=== PATIENT | female | born 1955 | race Hispanic/Latino ===

== ENCOUNTER 2020-05-13 11:38 | Outpatient (CLI) | payer BC, SELFPAY ==
--- NOTE | ~2020-05-13 | MM_ITS ---
EXAMINATION: MM screening [facility] BI w keith HISTORY: Screening TECHNIQUE: Craniocaudal and mediolateral oblique 3-D tomosynthesis images were obtained and synthetic 2-D images were generated. CAD analysis was submitted and interpreted. COMPARISON: Comparison to multiple prior studies sequentially, with oldest reviewed study dated 06/13. BREAST PARENCHYMAL COMPOSITION: There are scattered areas of fibroglandular density. FINDINGS: There is no evidence of suspicious mass, calcification, or architectural distortion to sugg est malignancy in either breast. There has been no suspicious interval change. IMPRESSION: 1. No mammographic evidence of malignancy. 2. Recommend routine screening mammography in one year. BI-RADS Category 1: Negative Reviewed, dictated and finalized at location A. ANICAL TECHNOLOGIST
== END 2020-05-13 11:39 | disposition home or self-care (01) ==
LOC: ANHIMG 11:41
PROVIDERS: PCP Internal Medicine; Visit Provider Obstetrics & Gynecology
DX: Z12.31 Encounter for screening mammogram for malignant neoplasm of breast (principal)
CPT/HCPCS: 77063; 77067

== ENCOUNTER → 2021-02-28 14:08 | Outpatient (CLI) | payer BC, SELFPAY ==
--- NOTE | ~2021-02-28 | XR_ITS ---
XR knee RT 2V 02/28/2021 14:17 Indication: Right knee pain Procedure: 2 views right knee Comparison: 11/09/2013 Findings: There is severe osteoarthritis of the right knee. Small joint effusion. No fracture, sublux ation or dislocation. Impression: 1: Severe osteoarthritis of the right knee. Reviewed, dictated and finalized at location A. Impression: 1: Severe osteoarthritis of the right knee.
== END ==
PROVIDERS: PCP Internal Medicine; Visit Provider Nurse Practitioner Family
DX: M17.11 Unilateral primary osteoarthritis, right knee (principal)
CPT/HCPCS: 73560

== ENCOUNTER 2021-11-10 09:17 | Outpatient (CLI) | payer BC, SELFPAY ==
--- NOTE | ~2021-11-10 | MM_ITS ---
EXAMINATION: MM screening [facility] BI w keith HISTORY: Screening mammogram TECHNIQUE: Craniocaudal and mediolateral oblique 3-D tomosynthesis images were obtained and synthetic 2-D images were generated. CAD analysis was submitted and interpreted. COMPARISON: 05/13/2020, 02/20/2019, 11/06/2017 bilateral screening mammogram examinations BREAST PARENCHYMAL COMPOSITION: There are scattered areas of fibroglandular density. FINDINGS: There is no evidence of suspicious mass, calcification, or architectural distortion to sugg est malignancy in either breast. There has been no suspicious interval change. IMPRESSION: 1. No mammographic evidence of malignancy. 2. Recommend routine screening mammography in one year. BI-RADS Category 1: Negative Reviewed, dictated and finalized at location A.
== END 2021-11-10 09:18 | disposition home or self-care (01) ==
LOC: ANHIMG 09:20
PROVIDERS: PCP Internal Medicine; Visit Provider Obstetrics & Gynecology
DX: Z12.31 Encounter for screening mammogram for malignant neoplasm of breast (principal)
CPT/HCPCS: 77063; 77067

== ENCOUNTER 2022-09-23 10:39 | Outpatient (CLI) | payer BC, SELFPAY ==
--- NOTE | ~2022-09-23 | DEXA_ITS ---
Bone Density Report Name: ALLEGRA MOSS Age: 67 Sex: Female Ethnicity: Date of : 1955 Indication: postmenopausal; screening for osteoporosis; Referring Provider: AMINAH ÁLVAREZ Study: Bone densitometry was performed. Exam Date: September 23, 2022 Accession number: [id number] Bone Density: Region BMD T-score Z-score Classification AP Spine(L1, L2) 0.989 0.1 1.8 Normal Femoral Neck (Left) 0.798 -0.5 0.9 Normal Total Hip (Left) 0.929 -0.1 0.9 Normal Femoral Neck (Right) 0.757 -0.8 0.5 Normal Total Hip (Right) 0.901 -0.3 0.7 Normal Total Hip Mean 0.915 -0.2 0.8 Normal World Health Organization criteria for BMD impression classify patients as: Normal (T-score at or above -1.0), Osteopenia (T-score between -1.0 and -2.5), or Osteoporosis (T-score at or below -2.5). 10-year Fracture Risk: FRAX not reported because: All T-scores for Spine Total, Hip Total, Femoral Neck at or above -1.0 Previous Exams: Region Exam Age BMD T-score BMD Change BMD Change Date g/cm2 vs Baseline vs Previous AP Spine (L1-L2) 09/23/2022 67 0.989 0.1 -0.097 (-8.9%) -0.097 (-8.9%) 08/25/2014 59 1.086 1.0 Total Hip(Left) 09/23/2022 67 0.929 -0.1 -0.152 (-14.1% -0.152 (-14.1% 08/25/2014 59 1.081 1.1 Total Hip(Right) 09/23/2022 67 0.901 -0.3 -0.202 (-18.3% -0.202 (-18.3% 08/25/2014 59 1.103 1.3 *Denotes significance at 95% confidence level, LSC for AP Spine = 0.022 g/cm2, LSC for Total Hip = 0.027 g/cm2 Clinical Information Provided by Patient: Patient maximum height was 62 Menopause Age: 53 No regular weight bearing exercise Does not regularly consume dairy products Drinks caffeinated beverages Onset of menses at age 13 Number of children 2 Impression: The patient has normal bone mass. The BMD for the AP Spine (L1-L2) decreased, changing by -8.9% since the last DXA exam. The BMD for the Total Hip(Left) decreased, changing by -14.1% since the last DXA exam. The BMD for the Total Hip(Right) decreased, changing by -18.3% since the last DXA exam. Discussion: BONE DENSITY IS ABOVE THE MINIMUM DESIRABLE LEVEL AT ALL SKELETAL SITES TESTED. This patient?s bone mineral density is above the minimum desirable level (T-score -1.0 or better) at all sites measured. The patient should follow a healthful lifestyle (good nutrition with adequate calcium and vitamin D, and appropriate weight-bearing exercise). Follow-Up: Consider r
== END 2022-09-23 10:40 | disposition home or self-care (01) ==
PROVIDERS: PCP Internal Medicine; Visit Provider Obstetrics & Gynecology
DX: Z78.0 Asymptomatic menopausal state (principal); R29.890 Loss of height
CPT/HCPCS: 77080

== ENCOUNTER 2023-01-28 07:33 | Outpatient (CLI) | payer BC, SELFPAY ==
--- NOTE | ~2023-01-28 | MM_ITS ---
EXAMINATION: MM screening [facility] BI w keith HISTORY: Screening TECHNIQUE: Craniocaudal and mediolateral oblique 3-D tomosynthesis images were obtained and synthetic 2-D images were generated. CAD analysis was submitted and interpreted. COMPARISON: Comparison to multiple prior studies sequentially, with oldest reviewed study dated 08/28. BREAST PARENCHYMAL COMPOSITION: There are scattered areas of fibroglandular density. FINDINGS: There is no evidence of suspicious mass, calcification, or architectural distortion to sugg est malignancy in either breast. There has been no suspicious interval change. IMPRESSION: 1. No mammographic evidence of malignancy. 2. Recommend routine screening mammography in one year. BI-RADS Category 1: Negative Reviewed, dictated and finalized at location A.
== END 2023-01-28 07:34 | disposition home or self-care (01) ==
PROVIDERS: PCP Internal Medicine; Visit Provider Obstetrics & Gynecology
DX: Z12.31 Encounter for screening mammogram for malignant neoplasm of breast (principal)
CPT/HCPCS: 77063; 77067

== ENCOUNTER 2024-04-07 13:32 | Outpatient (CLI) | payer BC, SELFPAY ==
--- NOTE | ~2024-04-07 | MM_ITS ---
EXAMINATION: MM screening [facility] BI w keith HISTORY: Screening TECHNIQUE: Craniocaudal and mediolateral oblique 3-D tomosynthesis images were obtained and synthetic 2-D images were generated. CAD analysis was submitted and interpreted. COMPARISON: Comparison to multiple prior studies sequentially, with oldest reviewed study dated 03/2017 . BREAST PARENCHYMAL COMPOSITION: Not dense: There are scattered areas of fibroglandular density. FINDINGS: There is no evidence of suspicious mass, calcification, or architectural distortion to sugg est malignancy in either breast. There has been no suspicious interval change. IMPRESSION: 1. No mammographic evidence of malignancy. 2. Recommend routine screening mammography in one year. BI-RADS Category 1: Negative Reviewed, dictated and finalized at location B.
== END 2024-04-07 13:33 | disposition home or self-care (01) ==
LOC: ANHIMG 13:36
PROVIDERS: PCP Internal Medicine; Visit Provider Obstetrics & Gynecology
DX: Z12.31 Encounter for screening mammogram for malignant neoplasm of breast (principal)
CPT/HCPCS: 77063; 77067

== ENCOUNTER 2025-05-18 07:48 | Outpatient (CLI) | payer BC, SELFPAY ==
--- NOTE | ~2025-05-18 | MM_ITS ---
EXAMINATION: MM screening keya BI w keith HISTORY: Screening TECHNIQUE: Craniocaudal and mediolateral oblique 3-D tomosynthesis images were obtained and synthetic 2-D images were generated. CAD analysis was submitted and interpreted. COMPARISON: Comparison to multiple prior studies sequentially, with oldest reviewed study dated , 02/20/2019 BREAST PARENCHYMAL COMPOSITION: There are scattered areas of fibroglandular density. FINDINGS: There is no evidence of suspicious mass, calcification, or architectural distortion to suggest malignancy in either breast. IMPRESSION: 1. No mammographic evidence of malignancy. 2. Recommend routine screening mammography in one year. BI-RADS Category 1: Negative Reviewed, dictated and finalized at location B. 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
--- NOTE | ~2025-05-18 | DEXA_ITS ---
Bone Density Report Name: ALLEGRA MOSS Age: 69 Sex: Female Ethnicity: Date of : 1955 Indication: postmenopausal; screening for osteoporosis; Referring Provider: AMINAH ÁLVAREZ Study: Bone densitometry was performed. Exam Date: May 18, 2025 Accession number: [id number] Bone Density: Region BMD T-score Z-score Classification AP Spine(L1, L2) 1.013 0.3 2.2 Normal Femoral Neck (Left) 0.767 -0.7 0.8 Normal Total Hip (Left) 0.912 -0.2 1.0 Normal Femoral Neck (Right) 0.759 -0.8 0.7 Normal Total Hip (Right) 0.900 -0.3 0.9 Normal Total Hip Mean 0.906 -0.3 1.0 Normal World Health Organization criteria for BMD impression classify patients as: Normal (T-score at or above -1.0), Osteopenia (T-score between -1.0 and -2.5), or Osteoporosis (T-score at or below -2.5). 10-year Fracture Risk: FRAX not reported because: All T-scores for Spine Total, Hip Total, Femoral Neck at or above -1.0 Previous Exams: Region Exam Age BMD T-score BMD Change BMD Change Date g/cm2 vs Baseline vs Previous AP Spine (L1-L2) 05/18/2025 69 1.013 0.3 -0.073 (-6.7%) 0.024 (2.4%)* 09/23/2022 67 0.989 0.1 -0.097 (-8.9%) -0.097 (-8.9%) 08/25/2014 59 1.086 1.0 Total Hip(Left) 05/18/2025 69 0.912 -0.2 -0.169 (-15.6% -0.017 (-1.8%) 09/23/2022 67 0.929 -0.1 -0.152 (-14.1% -0.152 (-14.1% 08/25/2014 59 1.081 1.1 Total Hip(Right) 05/18/2025 69 0.900 -0.3 -0.203 (-18.4% -0.001 (-0.1%) 09/23/2022 67 0.901 -0.3 -0.202 (-18.3% -0.202 (-18.3% 08/25/2014 59 1.103 1.3 *Denotes significance at 95% confidence level, LSC for AP Spine = 0.022 g/cm2, LSC for Total Hip = 0.027 g/cm2 Clinical Information Provided by Patient: Patient maximum height was 62 Menopause Age: 53 No regular weight bearing exercise Does not regularly consume dairy products Drinks caffeinated beverages Onset of menses at age 13 Number of children 2 Impression: The patient has normal bone mass. No significant bone loss was observed. Discussion: BONE DENSITY IS ABOVE THE MINIMUM DESIRABLE LEVEL AT ALL SKELETAL SITES TESTED. This patient?s bone mineral density is above the minimum desirable level (T-score -1.0 or better) at all sites measured. The patient should follow a healthful lifestyle (good nutrition with adequate calcium and vitamin D, and appropriate weight-bearing exercise). Follow-Up: Consider repeating this study in 5 years or sooner if there is some new clinical indication. Reported by: RODERICK on 05/18/2025 8:46:00 AM. Reviewed, dictated and finalized at location A.
--- OUTSIDE RECORDS SUMMARY | 2025-05-18 08:07 | XMS_ITS | Encounter Summary ---
Author Organization [facility] Facility Care Team Providers Care Precision Farming Specialist Name Role Phone Annie Chan MD Primary Care Provider [phone] Encounter Details Date Type Department Care Team (Latest Contact Info) Description 02/18/2017 Orders Only [facility] CLINCONV ProviderBre MD [address] [place] [address] Social History Tobacco Use Types Packs/Day Years Used Date Smoking Tobacco: Never Assessed Comments Unknown Sex and Gender Information Value Date Recorded Sex Assigned at Not on file Legal Sex Female 7:07 PM AT RISK SPECIALIST Gender Identity Not on file Sexual Orientation Not on file documented as of this encounter Plan of Treatment Upcoming Encounters Date Type Department Care Team (Latest Contact Info) Description 06/24/2025 7:15 AM AT RISK SPECIALIST Hospital Encounter [facility] [place] [address] [place] [address] Benoit Miller MD [address] [place] [address] DR NATHAN [address] [place] [phone] 06/24/2025 7:15 AM AT RISK SPECIALIST - 06/24/2025 9:22 AM AT RISK SPECIALIST Surgery [facility] [place] [address] [place] [address] Benoit Miller MD [address] [place] [address] DR NATHAN [address] [place] [phone] RIGHT TOTAL KNEE ARTHROPLASTY Scheduled Procedures Name Priority Associated Diagnoses Date/Ti me ARTHROPLASTY TOTAL KNEE Primary osteoarthritis of right knee 06/24/2025 7:15 AM AT RISK SPECIALIST documented as of this encounter Procedures Procedure Name Priority Date/Time Associated Diagnosis Comments COLONOSCOPY - SCAN 02/18/2017 12 :00 AM CDT documented in this encounter Results * COLONOSCOPY - SCAN (02/18/2017 12:00 AM CDT) Narrative 02/18/2017 12:00 AM CDT Ordered by an unspecified provider. us Historical Provider MD Final Res ult documented in this encounter Visit Diagnoses Not on filedocumented in this encounter Care Teams Precision Farming Specialist Relationship Specialty Start Date End Date Annie Chan MD [address] [facility] [address] [address] PCP - General Internal Medicine 11/10/18 documented as of this encounter
--- OUTSIDE RECORDS SUMMARY | 2025-05-18 08:07 | XMS_ITS | Encounter Summary ---
Author Organization [facility] Facility Care Team Providers Care Heel Scorer Name Role Phone Annie Chan MD Primary Care Provider [phone] Encounter Details Date Type Department Care Team (Latest Contact Info) Description 06/26/2017 Orders Only [facility] CLINCONV ProviderBre MD [address] [place] [address] Social History Tobacco Use Types Packs/Day Years Used Date Smoking Tobacco: Never Assessed Comments Unknown Sex and Gender Information Value Date Recorded Sex Assigned at Not on file Legal Sex Female 7:07 PM TUMBLERS SUPERVISOR Gender Identity Not on file Sexual Orientation Not on file documented as of this encounter Plan of Treatment Upcoming Encounters Date Type Department Care Team (Latest Contact Info) Description 06/24/2025 7:15 AM TUMBLERS SUPERVISOR Hospital Encounter [facility] [place] [address] [place] [address] Benoit Miller MD [address] [place] [address] DR NATHAN [address] [place] [phone] 06/24/2025 7:15 AM TUMBLERS SUPERVISOR - 06/24/2025 9:22 AM TUMBLERS SUPERVISOR Surgery [facility] [place] [address] [place] [address] Benoit Miller MD [address] [place] [address] DR NATHAN [address] [place] [phone] RIGHT TOTAL KNEE ARTHROPLASTY Scheduled Procedures Name Priority Associated Diagnoses Date/Ti me ARTHROPLASTY TOTAL KNEE Primary osteoarthritis of right knee 06/24/2025 7:15 AM TUMBLERS SUPERVISOR documented as of this encounter Procedures Procedure Name Priority Date/Time Associated Diagnosis Comments PROCEDURE - RESULT 08/14/2017 12 :00 AM TUMBLERS SUPERVISOR documented in this encounter Results * PROCEDURE - RESULT (08/14/2017 12:00 AM TUMBLERS SUPERVISOR) Narrative 08/14/2017 12:00 AM TUMBLERS SUPERVISOR Ordered by an unspecified provider. us Historical Provider MD Final Res ult documented in this encounter Visit Diagnoses Not on filedocumented in this encounter Care Teams Heel Scorer Relationship Specialty Start Date End Date Annie Chan MD [address] [facility] [address] [phone] PCP - General Internal Medicine 11/10/18 documented as of this encounter
--- OUTSIDE RECORDS SUMMARY | 2025-05-18 08:07 | XMS_ITS | Encounter Summary ---
Author Organization [facility] Address [address] [facility] [place] [address] Phone Care Team Providers Care Check Writer Salesperson Name Role Phone Annie Chan MD Primary Care Provider [phone] Encounter Details Date Type Department Care Team (Latest Contact Info) Description 09/26/2020 Orders Only [facility] Scanning, Provider Social History Tobacco Use Types Packs/Day Years Used Date Smoking Tobacco: Never Smokeless Tobacco: Never Alcohol Use Standard Drinks/Week Comments Never 0 (1 standard drink = 0.6 oz pur e alcohol) AUDIT-C Answer Date Recorded Frequency of Alcohol Consumption Never 11/10/2018 Average Number of Drinks Not on file 019 Frequency of Binge Drinking Not on file 10/14 PHQ-2 Answer Date Recorded PHQ-2 Total Score (If total score is 3 or more points, staff should administer the PHQ-9) 1 09/06/2020 Comments Unknown Sex and Gender Information Value Date Recorded Sex Assigned at Not on file Legal Sex Female 7:07 PM STERILE SUPPLY TECHNICIAN Gender Identity Not on file Sexual Orientation Not on file 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 Not on file Not on file documented as of this encounter Plan of Treatment Upcoming Encounters Date Type Department Care Team (Latest Contact Info) Description 06/24/2025 7:15 AM STERILE SUPPLY TECHNICIAN Hospital Encounter [facility] [place] [address] [place] [address] [place] [address] [place] [phone] 06/24/2025 7:15 AM STERILE SUPPLY TECHNICIAN - 06/24/2025 9:22 AM STERILE SUPPLY TECHNICIAN Surgery [facility] [place] [address] [place] [address] Benoit Miller MD [address] [facility] [address] NATHAN [address] [place] [phone] RIGHT TOTAL KNEE ARTHROPLASTY Scheduled Procedures Name Priority Associated Diagnoses Date/Ti me ARTHROPLASTY TOTAL KNEE Primary osteoarthritis of right knee 06/24/2025 7:15 AM STERILE SUPPLY TECHNICIAN documented as of this encounter Procedures Procedure Name Priority Date/Time Associated Diagnosis Comments SCAN - LABS 09/26/2020 documented in this encounter Results * SCAN - LABS (09/26/2020) us Provider Scanning Final Result documented in this encounter Visit Diagnoses Not on filedocumented in this encounter Care Teams Check Writer Salesperson Relationship Specialty Start Date End Date Annie Chan MD [facility] [address] NATHAN [address] [place] [id number] PCP - General Internal Medicine 11/10/18 documented as of this encounter
--- OUTSIDE RECORDS SUMMARY | 2025-05-18 08:07 | XMS_ITS | Clinical Summary ---
Author Organization 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 Role Phone Annie Chan MD Primary Care Provider [phone] Allergies No known active allergies Medications vitamin B complex capsule Take 1 capsule by mouth daily Active cholecalciferol , vitamin D3, (VITAMIN D3 ORAL) Take 1,000 mg by mouth daily Active triamcinolone (KENALOG) 0.1 % cream Apply topically 2 (two) times a day 80 g 1 5 Active diclofenac sodium (VOLTAREN) 1 % gel Apply 4 g topically 3 (three) times a day 100 g 2 5 Active desonide (DESOWEN) 0.05 % lotionIndicatio ns:Facial rash Apply topically 2 (two) times a day 59 mL 3 5 Active Active Problems Problem Noted Date Diagnosed Date Acute right ankle pain 03/03/2025 Assessment & Plan (03/03/2025 5:11 PM CDT): Patient with pain of the right ankle on the medial aspect after she tripped over a brick. She has mild tenderness in the area. There is no swelling. Patient is ambulatory without assistance. Will obtain x-ray. Advised to apply Voltaren gel twice daily. Elevate the leg. Advised to wear ankle brace. Advised to apply ice. If she has persistent symptoms she will follow up with her orthopedic doctor Cyst of left ovary 01/03/2025 Assessment & Plan (01/03/2025 7:41 AM CDT): Follow-up with a speech coach. Left carpal tunnel syndrome 06/21/2024 Pain of left hand 06/21/2024 Primary insomnia 02/17/2023 Assessment & Plan (01/28/2024 4:29 PM CDT): Patient was on trazodone 100 mg q.h.s. but she believes that dose was too strong for her so we will cut down the dose to 50 mg q.h.s. Assessment & Plan (02/17/2023 10:55 AM CDT): We discussed sleep hygiene with the patient. Patient stated that she tried melatonin and that did not help. Will start her on trazodone 100 mg q.h.s. p.r.n.. BMI 38.0-38.9,adult 11/11/2022 Primary osteoarthritis of right knee 03/25/2022 Assessment & Plan (03/03/2025 5:11 PM CDT): Patient has severe osteoarthritis of right knee and she is followed by the orthopedic surgeon Assessment & Plan (09/30/2024 1:04 PM CDT): Patient has severe osteoarthritis of right knee and she is followed by the orthopedic surgeon Assessment & Plan (01/28/2024 4:28 PM CDT): Patient has severe arthritis of the right knee. She is followed by the orthopedic doctor. Steroid injections and gel injections did not help much. Advised to discuss that further with her orthopedic doctor Assessment & Plan (11/11/2022 10:23 AM CDT): Managed by the orthopedic doctor Assessment & Plan (08/13/2022 9:52 AM ADMINISTRATIVE PROFESSIONAL): Followed by the orthopedic doctor Assessment & Plan (03/25/2022 4:26 PM CDT): Will make a referral to see orthopedic doctor again for possible total knee replacement Recurrent major depressive disorder, in full rem ission 12/24/2021 Assessment & Plan (03/03/2025 5:12 PM CDT): Patient is stable without medications Assessment & Plan (09/30/2024 1:04 PM CDT): Patient is stable without medications Assessment & Plan (05/03/2024 11:47 AM CDT): Controlled on Prozac Assessment & Plan (01/28/2024 7:49 AM CDT): Patient is in remission without medications Assessment & Plan (09/24/2023 2:58 PM CDT): Patient is in remission without medications Assessment & Plan (05/20/2023 7:47 AM ADMINISTRATIVE PROFESSIONAL): Controlled on Prozac Assessment & Plan (02/17/2023 10:55 AM CDT): Controlled on Prozac Assessment & Plan (11/11/2022 7:53 AM CDT): Controlled on Prozac Assessment & Plan (08/13/2022 9:52 AM ADMINISTRATIVE PROFESSIONAL): Resume Prozac 10 mg daily Assessment & Plan (03/25/2022 4:26 PM CDT): Patient stop taking Prozac and she feels well with no symptoms of depression. Continue to hold Prozac Assessment & Plan (12/24/2021 4:50 PM CDT): Controlled on Prozac Migraine without aura and wi thout status migrainosus, not intractable 09/17/2021 Assessment & Plan (01/03/2025 11:36 AM CDT): Asymptomatic Assessment & Plan (09/30/2024 1:04 PM CDT): Asymptomatic Assessment & Plan (05/03/2024 7:43 AM CDT): Asymptomatic Assessment & Plan (01/28/2024 7:48 AM CDT): Asymptomatic Assessment & Plan (09/24/2023 2:58 PM CDT): Asymptomatic Assessment & Plan (05/20/2023 10:43 AM ADMINISTRATIVE PROFESSIONAL): Patient said that she has occasional episodes of migraine. She said on average is twice a month. She said she takes Tylenol. Nurtec was not covered by her insurance. Patient does not feel she needs to be on prescription drugs at this time. Assessment & Plan (02/17/2023 10:54 AM CDT): Patient with recurrent migraine headache. We gave her samples of nurtec and will try to order the medication again. Assessment & Plan (11/11/2022 10:23 AM CDT): Patient with recurrent migraine headache. We will start her on nurtec 75 mg p.r.n.. She will call for persistent symptoms Assessment & Plan (08/13/2022 9:52 AM ADMINISTRATIVE PROFESSIONAL): Asymptomatic Assessment & Plan (03/25/2022 1:10 PM CDT): Asymptomatic and stable without medications Assessment & Plan (12/24/2021 4:49 PM CDT): Patient is asymptomatic and stable without medications Assessment & Plan (09/17/2021 5:04 PM ADMINISTRATIVE PROFESSIONAL): Patient with recurrent migraine. She will be started again on emgality 120 mg subQ once a month. She will call for persistent headache. Itching 09/06/2020 Assessment & Plan (06/11/2021 4:57 PM ADMINISTRATIVE PROFESSIONAL): Improved and followed by the home lending officer Assessment & Plan (09/06/2020 4:57 PM ADMINISTRATIVE PROFESSIONAL): Will obtain food allergy testing and start her on Atarax and side effects were explained and the patient will call in 1-2 weeks for persistent symptoms for referral to see customer service agent Bilateral leg edema 12/02/2019 Assessment & Plan (09/24/2023 2:58 PM CDT): No leg edema. Patient is stable off Bumex Assessment & Plan (08/13/2022 7:53 AM ADMINISTRATIVE PROFESSIONAL): Controlled on Bumex Assessment & Plan (12/24/2021 4:49 PM CDT): Controlled on Bumex Assessment & Plan (06/11/2021 4:57 PM ADMINISTRATIVE PROFESSIONAL): Controlled on Bumex Assessment & Plan (03/12/2021 4:41 PM CDT): There is no leg edema. Patient stopped Bumex Assessment & Plan (12/08/2019 1:54 PM CDT): Continue Lasix 40 mg daily and elevate the legs as tolerated. Assessment & Plan (12/02/2019 10:50 AM CDT): The patient has a +2 bilateral leg edema. We discussed low-salt diet and encouraged her to ambulate more frequently. The patient will be started on Lasix 40 mg daily and will evaluate her again in 1 week Left leg cellulitis 12/02/2019 Assessment & Plan (12/02/2019 10:50 AM CDT): The patient has varicose veins in the left leg and evidence of mild cellulitis. We will start her on Augmentin 875 mg twice daily for 1 week and evaluate her after that. Chronic pain of right knee 07/28/2019 Assessment & Plan (12/04/2020 5:07 PM CDT): Follow-up with orthopedic doctor or pain management for possible steroid injections Assessment & Plan (05/29/2020 4:54 PM ADMINISTRATIVE PROFESSIONAL): Patient was advised to follow up with the orthopedic doctor for chronic pain in her right knee. We discussed the importance of weight loss to help with her symptoms. She will continue Voltaren gel as needed Assessment & Plan (02/24/2020 5:00 PM CDT): Start Voltaren gel 3 times daily p.r.n. Varicose veins of right lower extremity with [place] quinteros 07/08/2019 Assessment & Plan (12/24/2021 4:49 PM CDT): Advised to wear stockings specially if she spends long time on her feet Assessment & Plan (09/06/2020 1:19 PM ADMINISTRATIVE PROFESSIONAL): Status post ablation therapy Assessment & Plan (05/29/2020 4:54 PM ADMINISTRATIVE PROFESSIONAL): Status post ablation therapy with resolution of the pain and swelling in the right leg Assessment & Plan (02/24/2020 4:59 PM CDT): Followed by the vascular surgeon Assessment & Plan (12/08/2019 1:55 PM CDT): The patient has spider veins with superficial thrombophlebitis in the left leg. Will make her a referral to see a different vascular surgeon for 2nd opinion. The patient said that she tried elastic stockings but she could not tolerate them. The patient was advised to elevate her legs as much as possible and continue with Lasix 40 mg daily. Anxiety 08/31/2018 Assessment & Plan (09/30/2024 1:03 PM CDT): Stable without medications Assessment & Plan (05/03/2024 11:47 AM CDT): Controlled on Prozac Assessment & Plan (09/24/2023 2:57 PM CDT): Patient is doing well without the medication. She will call for recurrent symptoms Assessment & Plan (12/04/2020 5:07 PM CDT): Patient will be started on Xanax to be taken before she flies. We also will start her on Prozac 20 mg daily for anger and I recommended that she seeks counseling. She will do that. She will call for persistent symptoms and will consider psychiatric referral if she does not feel better Essential hypertension 08/13/2017 Assessment & Plan (01/03/2025 11:36 AM CDT): Blood pressure is stable without medications Assessment & Plan (09/30/2024 1:03 PM CDT): Patient ran out of the medications for over a month and her blood pressure is normal. Continue low-salt diet. She lost weight with diet and exercise and she was encouraged to continue to do that. Assessment & Plan (05/03/2024 7:43 AM CDT): Blood pressure is stable without medications. Continue low-salt diet and encouraged weight loss Assessment & Plan (01/28/2024 7:48 AM CDT): Blood pressure is stable without medications. Continue low-salt diet and encouraged weight loss Assessment & Plan (09/24/2023 2:58 PM CDT): Patient is out of her blood pressure medications for 3 weeks and the blood pressure is normal so we will continue to hold blood pressure medications. Patient lost some weight with diet and encouraged her to lose more weight. Continue low-salt diet Assessment & Plan (05/20/2023 7:46 AM ADMINISTRATIVE PROFESSIONAL): Continue current medications. Discussed low-salt diet. Discussed exercise on regular basis. Will continue to monitor Assessment & Plan (02/17/2023 10:54 AM CDT): Continue current medications. Discussed low-salt diet. Discussed exercise on regular basis. Will continue to monitor Assessment & Plan (11/11/2022 7:52 AM CDT): Continue current medications. Discussed low-salt diet. Discussed exercise on regular basis. Will continue to monitor Assessment & Plan (08/13/2022 7:51 AM ADMINISTRATIVE PROFESSIONAL): Continue current medications. Discussed low-salt diet. Discussed exercise on regular basis. Will continue to monitor Assessment & Plan (03/25/2022 1:10 PM CDT): Continue current medications. Discussed low-salt diet. Discussed exercise on regular basis. Will continue to monitor Assessment & Plan (12/24/2021 4:49 PM CDT): Continue current medications. Discussed low-salt diet. Discussed exercise on regular basis. Will continue to monitor Assessment & Plan (09/17/2021 1:13 PM ADMINISTRATIVE PROFESSIONAL): Continue current medications. Discussed low-salt diet. Discussed exercise on regular basis. Will continue to monitor Assessment & Plan (06/11/2021 1:00 PM ADMINISTRATIVE PROFESSIONAL): Continue current medications. Discussed low-salt diet. Discussed exercise on regular basis. Will continue to monitor Assessment & Plan (03/12/2021 12:59 PM CDT): Continue current medications. Discussed low-salt diet. Discussed exercise on regular basis. Will continue to monitor Assessment & Plan (12/04/2020 5:06 PM CDT): Continue current medications. Discussed low-salt diet. Discussed exercise on regular basis. Will continue to monitor Assessment & Plan (09/06/2020 1:19 PM ADMINISTRATIVE PROFESSIONAL): Continue current medications. Discussed low-salt diet. Discussed exercise on regular basis. Will continue to monitor Assessment & Plan (05/29/2020 4:54 PM ADMINISTRATIVE PROFESSIONAL): Continue current medications. Discussed low-salt diet. Discussed exercise on regular basis. Will continue to monitor Assessment & Plan (02/24/2020 4:59 PM CDT): Continue current medications. Discussed low-salt diet. Discussed exercise on regular basis. Will continue to monitor Assessment & Plan (12/08/2019 1:54 PM CDT): Continue current medications. Discussed low-salt diet. Discussed exercise on regular basis. Will continue to monitor Assessment & Plan (12/02/2019 10:50 AM CDT): Continue current medications. Discussed low-salt diet. Discussed exercise on regular basis. Will continue to monitor Assessment & Plan (09/20/2019 4:59 PM CDT): Continue current medications. Discussed low-salt diet. Discussed exercise on regular basis. Will continue to monitor Assessment & Plan (06/21/2019 4:56 PM ADMINISTRATIVE PROFESSIONAL): Continue current medications. Discussed low-salt diet. Discussed exercise on regular basis. Will continue to monitor Assessment & Plan (03/16/2019 8:07 PM CDT): Continue current medications. Discussed low-salt diet. Discussed exercise on regular basis. Will continue to monitor Assessment & Plan (12/09/2018 5:07 PM CDT): Continue current medications. Discussed low-salt diet. Discussed exercise on regular basis. Will continue to monitor S/P lumbar fusion 06/26/2017 Spondylolisthesis of lumbar region 06/26/2017 Morbid obesity with BMI of 40.0-44.9, adult 04/0 12/2016 Assessment & Plan (09/30/2024 7:56 AM CDT): Encouraged low-calorie diet and ambulation as tolerated Assessment & Plan (05/03/2024 7:43 AM CDT): Encouraged low-calorie diet and ambulation as tolerated Assessment & Plan (01/28/2024 4:30 PM CDT): Encouraged low-calorie diet and ambulation as tolerated Assessment & Plan (09/23/2023 5:16 PM CDT): BMI Follow-up includes: nutrition counseling. The patient was advised to exercise 5 times a week for 30 minutes each time. We discussed low calorie diet. Discussed lifestyle changes. Assessment & Plan (05/20/2023 7:47 AM ADMINISTRATIVE PROFESSIONAL): BMI Follow-up includes: nutrition counseling. The patient was advised to exercise 5 times a week for 30 minutes each time. We discussed low calorie diet. Discussed lifestyle changes. Assessment & Plan (02/17/2023 10:55 AM CDT): BMI Follow-up includes: nutrition counseling. The patient was advised to exercise 5 times a week for 30 minutes each time. We discussed low calorie diet. Discussed lifestyle changes. Assessment & Plan (11/11/2022 7:53 AM CDT): BMI Follow-up includes: nutrition counseling. The patient was advised to exercise 5 times a week for 30 minutes each time. We discussed low calorie diet. Discussed lifestyle changes. Assessment & Plan (08/13/2022 7:52 AM ADMINISTRATIVE PROFESSIONAL): BMI Follow-up includes: nutrition counseling. The patient was advised to exercise 5 times a week for 30 minutes each time. We discussed low calorie diet. Discussed lifestyle changes. Assessment & Plan (03/25/2022 1:10 PM CDT): BMI Follow-up includes: nutrition counseling. The patient was advised to exercise 5 times a week for 30 minutes each time. We discussed low calorie diet. Discussed lifestyle changes. Assessment & Plan (12/24/2021 4:49 PM CDT): BMI Follow-up includes: nutrition counseling. The patient was advised to exercise 5 times a week for 30 minutes each time. We discussed low calorie diet. Discussed lifestyle changes. Assessment & Plan (09/17/2021 1:13 PM ADMINISTRATIVE PROFESSIONAL): BMI Follow-up includes: nutrition counseling. The patient was advised to exercise 5 times a week for 30 minutes each time. We discussed low calorie diet. Discussed lifestyle changes. Assessment & Plan (06/11/2021 1:01 PM ADMINISTRATIVE PROFESSIONAL): BMI Follow-up includes: nutrition counseling. The patient was advised to exercise 5 times a week for 30 minutes each time. We discussed low calorie diet. Discussed lifestyle changes. Assessment & Plan (03/12/2021 12:59 PM CDT): BMI Follow-up includes: nutrition counseling. The patient was advised to exercise 5 times a week for 30 minutes each time. We discussed low calorie diet. Discussed lifestyle changes. Assessment & Plan (12/04/2020 5:06 PM CDT): BMI Follow-up includes: nutrition counseling. The patient was advised to exercise 5 times a week for 30 minutes each time. We discussed low calorie diet. Discussed lifestyle changes. Assessment & Plan (09/06/2020 1:19 PM ADMINISTRATIVE PROFESSIONAL): BMI Follow-up includes: nutrition counseling. The patient was advised to exercise 5 times a week for 30 minutes each time. We discussed low calorie diet. Discussed lifestyle changes. Assessment & Plan (05/29/2020 4:54 PM ADMINISTRATIVE PROFESSIONAL): BMI Follow-up includes: nutrition counseling. The patient was advised to exercise 5 times a week for 30 minutes each time. We discussed low calorie diet. Discussed lifestyle changes. Assessment & Plan (02/24/2020 4:59 PM CDT): BMI Follow-up includes: nutrition counseling. The patient was advised to exercise 5 times a week for 30 minutes each time. We discussed low calorie diet. Discussed lifestyle changes. Assessment & Plan (12/02/2019 10:50 AM CDT): BMI Follow-up includes: nutrition counseling. The patient was advised to exercise 5 times a week for 30 minutes each time. We discussed low calorie diet. Discussed lifestyle changes. Assessment & Plan (09/20/2019 4:59 PM CDT): BMI Follow-up includes: nutrition counseling. The patient was advised to exercise 5 times a week for 30 minutes each time. We discussed low calorie diet. Discussed lifestyle changes. Assessment & Plan (06/21/2019 4:56 PM ADMINISTRATIVE PROFESSIONAL): BMI Follow-up includes: nutrition counseling. The patient was advised to exercise 5 times a week for 30 minutes each time. We discussed low calorie diet. Discussed lifestyle changes. Assessment & Plan (03/16/2019 8:07 PM CDT): BMI Follow-up includes: nutrition counseling. The patient was advised to exercise 5 times a week for 30 minutes each time. We discussed low calorie diet. Discussed lifestyle changes. Rib pain 09/18/2016 Stenosis of lumbosacral spine 07/03/2016 Assessment & Plan (09/17/2021 5:02 PM ADMINISTRATIVE PROFESSIONAL): Status post lumbar fusion. She is currently asymptomatic Assessment & Plan (06/11/2021 1:01 PM ADMINISTRATIVE PROFESSIONAL): Status post lumbar fusion Assessment & Plan (03/12/2021 4:40 PM CDT): Status post lumbar fusion with recurrent pain. She had epidural injections recently with improvement in her symptoms Assessment & Plan (12/04/2020 5:06 PM CDT): Will obtain MRI of the lumbar spine and make a referral to see pain management after we get the result Assessment & Plan (09/20/2019 5:00 PM CDT): Status the post lumbar fusion Assessment & Plan (06/21/2019 4:56 PM ADMINISTRATIVE PROFESSIONAL): Status post lumbar fusion Low back pain 06/19/2016 Assessment & Plan (03/16/2019 8:07 PM CDT): Status post laminectomy and currently stable and asymptomatic Right hip pain 06/19/2016 Assessment & Plan (09/20/2019 5:00 PM CDT): Improved after steroid inject Encounters Date Type Department Care Team Description 04/07/2025 Orders Only [facility] Orthopedics and Sports Medicine [address] [place] [id number] Benoit Miller MD Primary osteoarthritis of right knee (Primary Dx) 04/04/2025 11:45 AM CDT Office Visit [facility] Orthopedics and Sports Medicine [address] [place] [address] Benoit Miller MD Chronic pain of right knee (Primary Dx) 03/20/2025 Results Follow-Up [facility] Internal Medicine [address] [place] [address] Annie Chan MD XR Ankle Right 2 Views 03/04/2025 2:30 PM CDT - 03/04/2025 11:59 PM CDT Hospital Encounter [facility] Diagnostic Imaging [facility] [place] [address] Acute right ankle pain Discharge Disposition: Discharge to home or self care 03/03/2025 3:45 PM CDT Office Visit [facility] Internal Medicine [facility] [place] [address] Annie Chan MD Acute right ankle pain (Primary Dx); Facial rash; BMI 38.0-38.9,adult; Primary osteoarthritis of right knee from Last 3 Months Immunizations Immunization Administration Dates Next Due Influenza, Quadrivalent, Hig h Dose, Preservative Free, Intrr 05/20/2023,08/13/2022 Influenza, Quadrivalent, Spl it, Preservative Free, Intramuscular 06/11/2021,05/29/2020 Influenza, Trivalent, High D ose, Split, Preservative Free, Intramuscular 05/03/2024 Influenza, Unspecified 05/11/2019 Pfizer SARS-CoV-2 Monovalent Vaccination (12+ Yrs) PURPLE 10/30/2020,10/09/2020 Pneumococcal Conjugate PCV 13 09/17/2021 Pneumococcal Conjugate Pcv20 11/11/2022 Tdap 09/20/2019 ZOSTER Recombinant 03/30/2024,01/29/2024 Surgical History Surgery Date Site/Laterality Comments SPINE SURGERY CHOLECYSTECTOMY BACK SURGERY CATARACT EXTRACTION 01/21/2023 Right CATARACT EXTRACTION Right Medical History Medical History Date Comments Hypertension Obesity Headache Anxiety Family History Medical History Relation Name Comments No Known Problems Father No Known Problems Mother Relation Name Status Comments Father Mother Social History Tobacco Use Types Packs/Day Years Used Date Smoking Tobacco: Never Smokeless Tobacco: Never Tobacco Cessation:Counseling Given: Not Answered Alcohol Use Standard Drinks/Week Comments Never 0 (1 standard drink = 0.6 oz pur e alcohol) PHQ-2 Answer Date Recorded PHQ-2 Total Score (If total score is 3 or more points, staff should administer the PHQ-9) 0 05/03/2024 AUDIT-C Answer Date Recorded Q1: How often do you have a drink containing alcohol? Never 03/03/2025 Q2: How many drinks containi ng alcohol do you have on a typical day when you are drinking? Patient does not drink Q3: How often do you have si x or more drinks on one occasion? Never 03/03/2025 Personal Safety Answer Date Recorded Have you ever been in or are you currently in a harmful physical or emotional relationship or is someone making you feel afraid or unsafe? 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 Not on file Not on file Last Filed Vital Signs Vital Sign Reading Time Taken Comments Blood Pressure 124/68 03/03/2025 4:03 PM CDT Pulse 69 03/03/2025 4:03 PM CDT Temperature 36.6 C (97.8 F) 03/03/2025 4:03 PM CDT Respiratory Rate 18 03/03/2025 4:03 PM CDT Oxygen Saturation 97% 03/03/2025 4:03 PM CDT Inhaled Oxygen Concentration - - Weight 96.2 kg (212 lb) 03/03/2025 4:03 PM CDT Height 157.5 cm (5' 2) 03/03/2025 4:03 PM CDT Body Mass Index 38.78 03/03/2025 4:03 PM CDT Plan of Treatment Upcoming Encounters Date Type Department Care Team (Latest Contact Info) Description 06/24/2025 7:15 AM ADMINISTRATIVE PROFESSIONAL Hospital Encounter [facility] [place] [address] [place] [phone] Benoit Miller MD [address] [place] [address] [address] [place] [address] 06/24/2025 7:15 AM ADMINISTRATIVE PROFESSIONAL - 06/24/2025 9:22 AM ADMINISTRATIVE PROFESSIONAL Surgery [facility] [place] [address] [place] [address] Benoit Miller MD [facility] [address] [place] [address] RIGHT TOTAL KNEE ARTHROPLASTY Scheduled Procedures Name Priority Associated Diagnoses Date/Ti me ARTHROPLASTY TOTAL KNEE Primary osteoarthritis of right knee 06/24/2025 7:15 AM ADMINISTRATIVE PROFESSIONAL Health Maintenance Due Date Last Done Comments Hepatitis B Screening 1973 Well Visit 65+ 2021 Osteoporosis Screening-Bone Density Scan 09/23/2024 09/23/2022 Covid-19 Vaccine (4 - 2024-2 6 season) 2025 03/30/2024, 10/30/2020, 10/09/2020 Influenza Vaccine (#1) 2025 , 05/20/2023, 08/13/2022, Additional history exists Breast Cancer Screening-Mammogram 04/07/2025 04/07/2024, 01/28/2023, 11/10/2021, Additional history exists Depression Screening 05/03/2025 05/03/2024, 01/28/2024, 09/24/2023, Additional history exists Fall Risk Assessment 05/03/2025 05/03/2024, 01/28/2024, 09/24/2023, Additional history exists Colon Cancer Screening-Colonoscopy 11/17/2026 11/18/2023, 01/03/2020, 01/03/2020, Additional history exists DTaP/Tdap/Td Vaccine (2 - Td or Tdap) 09/19/2029 09/20/2019 Hepatitis C Screening Completed 11/07/2022 Pneumococcal vaccine 65+ Completed 11/11/2022, 01/2022 Colon Cancer Screening-CT Colonography Discontinued 11/18/2023, 01/03/2020, 01/03/2020, Additional history exists Colon Cancer Screening-DNA Stool Discontinued 11/18/2023, 01/03/2020, 01/03/2020, Additional history exists Colon Cancer Screening-FIT Discontinued 11/17, 01/03/2020, 01/03/2020, Additional history exists Colon Cancer Screening-Sigmoidoscopy Discontinued 11/18/2023, 01/03/2020, 01/03/2020, Additional history exists Zoster Vaccine Completed 03/30/2024, 01/29/2024 Goals Goal Patient Goal Type Associated Problems Recent Progress Patient-Stated? Author Autogenera carol Goal Care Plan Autogenerated Problem No Jenniffer Kinney MA Procedures Procedure Name Priority Date/Time Associated Diagnosis Comments XR ANKLE RIGHT 2 VIEWS Schedule Routine, Read Routine (OP Routine) 03/04/2025 2:46 PM CDT Acute right ankle pain MAMMOGRAPHY Routine 04/07/2024 11:32 AM CDT COLONOSCOPY Routine 11/18/2023 2:59 PM CDT HEPATITIS C ANTIBODY Routine 11/07/2022 12:47 PM CDT Encounter for hepatitis C screening test for low risk patient DEXA SCAN Routine 09/23/2022 from Last 3 Months or Most Recently Relevant to Health Maintenance Results * XR Ankle Right 2 Views (03/04/2025 2:46 PM CDT) Anatomical Region Laterality Modality Lower Extremities, Ankle Right Compute d Radiography 03/18/2025 6:27 PM CDT Narrative 03/18/2025 6:30 PM CDT EXAM DESCRIPTION: 1. XR ANKLE RIGHT 2 VIEWS REASON FOR STUDY: Right ankle pain Pain, no injury. FINDINGS: Two views submitted without comparison. The ankle joint space is normal. No evidence of an ankle effusion. Achilles enthesophyte and a small heel spur are present. Mild midfoot osteoarthritis. Mild anterior ankle and dorsal midfoot soft tissue swelling. IMPRESSION: 1. Mild anterior right ankle and dorsal midfoot soft tissue swelling. 2. Mild right midfoot osteoarthritis. THIS IS AN ELECTRONICALLY VERIFIED FINAL REPORT 03/18/2025 6:30 PM - Electronically signed by Benoit Francis M.D. T: Report ID: [id number] Reading Location: [id number] Procedure Note Benoit Francis MD - 03/18/2025 EXAM DESCRIPTION: 1. XR ANKLE RIGHT 2 VIEWS REASON FOR STUDY: Right ankle pain Pain, no injury. FINDINGS: Two views submitted without comparison. The ankle joint space is normal. No evidence of an ankle effusion.Achilles enthesophyte and a small heel spur are present. Mild midfootosteoarthritis. Mild anterior ankle and dorsal midfoot soft tissue swelling. IMPRESSION: 1. Mild anterior right ankle and dorsal midfoot soft tissue swelling. 2. Mild right midfoot osteoarthritis. THIS IS AN ELECTRONICALLY VERIFIED FINAL REPORT 03/18/2025 6:30 PM - Electronically signed by Benoit Francis M.D. T: Report ID: [id number] Reading Location: [id number] Annie Chan MD IMG XR PROCEDURES Final Res ult * HM MAMMOGRAPHY (04/07/2024 11:32 AM CDT) Historical Provider HEALTH MAINTENANCE Edited Result - Final * Colonoscopy (11/18/2023 2:59 PM CDT) Anatomical Region Laterality Modality Other Historical Provider ENDOSCOPY PROCEDURES Shante l Result * Hepatitis C antibody (11/07/2022 12:47 PM CDT) Pathologist [facility] [place] Hep C Ab Non Reactive Non Reactive [facility] - 01 Comment: HCV antibody alone does not differentiate between previously resolved infection and active infection. Equivocal and Reactive HCV antibody results should be followed up with an HCV RNA test to support the diagnosis of active HCV infection. Blood 11/07/2022 12:4 7 PM CDT 11/07/2022 Narrative [facility] - 11/08/2022 7:10 AM CDT Performed at: [address] [place] [id number] Senior Physical Therapist: Kareem Geller PhD, Phone: [phone] Annie Chan MD LAB MICROBIOLOGY - GENERAL ORDERABLES Final Result [facility] - 01 * HM DEXA SCAN (09/23/2022) Historical Provider HEALTH MAINTENANCE Final Result from Last 3 Months or Most Recently Relevant to Health Maintenance Additional Health Concerns Active Problems Noted Date Diagnosed Date Autogenerated Problem 04/05/[address] [facility] Address: [address] [place] [address] 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
--- OUTSIDE RECORDS SUMMARY | 2025-05-18 08:07 | XMS_ITS | Encounter Summary ---
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 Gender Identity Not on file Sexual Orientation Not on file 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 Not on file Not on file documented as of this encounter Plan of Treatment Upcoming Encounters Date Type Department Care Team (Latest Contact Info) Description 06/24/2025 7:15 AM COOLER CONVEYOR LOADER Hospital Encounter [facility] [place] [address] [place] [phone] Benoit Miller MD [address] [place] [address] DR NATHAN [address] [place] [phone] 06/24/2025 7:15 AM COOLER CONVEYOR LOADER - 06/24/2025 9:22 AM COOLER CONVEYOR LOADER Surgery [facility] [place] [address] [place] [phone] Benoit Miller MD [address] [place] [address] DR NATHAN [address] [place] [phone] RIGHT TOTAL KNEE ARTHROPLASTY Scheduled Procedures Name Priority Associated Diagnoses Date/Ti me ARTHROPLASTY TOTAL KNEE Primary osteoarthritis of right knee 06/24/2025 7:15 AM COOLER CONVEYOR LOADER documented as of this encounter Visit Diagnoses Not on filedocumented in this encounter Care Teams Drilling Engineering Manager Relationship Specialty Start Date End Date Annie Chan MD [facility] [address] NATHAN [address] [place] [phone] PCP - General Internal Medicine 11/10/18 documented as of this encounter
== END 2025-05-18 07:49 | disposition home or self-care (01) ==
LOC: ANHFOHIMG 08:02
PROVIDERS: PCP Internal Medicine; Visit Provider Obstetrics & Gynecology
DX: Z12.31 Encounter for screening mammogram for malignant neoplasm of breast (principal); R29.890 Loss of height; Z78.0 Asymptomatic menopausal state
CPT/HCPCS: 77063; 77067; 77080